=== PATIENT | male | born 1935 | race Caucasian/White ===

== ENCOUNTER 2023-12-15 23:32 | Inpatient (IN) ==
[2023-12-15] MEDS: 0.9 % SODIUM CHLORIDE 1,000 ML IV ONE (23:59)
[2023-12-16 00:53] LABS: Creatine Kinase 28 U/L (24-195)
[2023-12-16 00:55] LABS: ALT/SGPT 24 U/L (<40); AST/SGOT 19 U/L (<40); Albumin/Globulin Ratio 1.2 (1.0-2.3); Alkaline Phosphatase 148 U/L (39-117); Bilirubin,Total 0.4 mg/dL (0.1-1.0); Blood Urea Nitrogen 74 mg/dL (8-23); Calcium 10.8 mg/dL (8.6-10.4); Carbon Dioxide 21 mmol/L (22-30); Chloride 90 mmol/L (96-108); Globulin 2.5 gm/dL (2.2-3.7); Glomerular Filtration Rate 24; Glucose 123 mg/dL (70-105)
[2023-12-16 00:56] LABS: Basophils # (Auto) 0.01 K/mcL (0.00-0.30); Basophils % (Auto) 0.1 % (0.0-2.0); Eosinophils # (Auto) 0.02 K/mcL (0.00-0.70); Eosinophils % (Auto) 0.1 % (0.0-7.0); Hematocrit 24.9 % (40.1-51.0); Lymphocytes # (Auto) 0.37 K/mcL (1.50-4.80); Lymphocytes % (Auto) 2.8 % (15.5-49.0); Mean Cell Volume 81.9 fL (80.0-100.0); Mean Corpuscular HGB Conc 32.1 g/dL (31.0-36.0); Mean Platelet Volume 8.7 fL (8.8-12.5); Monocytes # (Auto) 1.09 K/mcL (0.10-0.90); Monocytes % (Auto) 8.1 % (1.0-12.0); Neutrophils % (Auto) 87.8 % (38.0-78.0); Platelet Count 162 K/mcL (140-440); RBC 3.04 M/mcL (4.63-6.08); Red Cell Distribution Width 15.3 % (11.5-14.5); WBC 13.5 K/mcL (4.5-11.0)
[2023-12-16] MEDS: FUROSEMIDE 40 MG/4 ML VIAL IV ONE (02:02)
[2023-12-16 03:21] LABS: Appearance,Urine CLOUDY (Clear); Bilirubin,Urine Negative (Negative); Calcium Oxalate Crystals,Urine MOD /hpf; Color,Urine YELLOW; Culture Indicated,Urine No; Glucose,Urine (UA) Negative (Negative); Ketones,Urine Negative (Negative); Leukocyte Esterase,Urine Negative /uL (Negative); Mucus,Urine FEW /hpf; Nitrate,Urine Negative (Negative); Protein,Urine Negative (Negative); Specific Gravity,Urine 1.011 (1.000-1.035); Urine Blood Negative (Negative); Urine Hyaline Cast 24 /lph (0-2); Urine RBC 1 /hpf (0-3); Urine Squamous Epithelial Cell 0 /hpf (0-4); Urine Transitional Epi Cells < 1 /hpf (0-2); Urine WBC 4 /hpf (0-4); Urobilinogen,Urine Negative
[2023-12-16] MEDS ORDERED: ONDANSETRON 4 MG/2 ML VIAL IV PRN ×3 (03:38→11:03)
[2023-12-16] MEDS: morphine 4 MG/ML VIAL IV PRN (05:16)
[2023-12-16] MEDS ORDERED: HYDROcodone/APAP 5/325MG TABLET PO PRN (11:03)
[2023-12-16] MEDS ORDERED: POTASSIUM CHLORIDE 40 MEQ in DEXTROSE 5% IN WATER 500 ML IV PRN (11:03)
[2023-12-16] MEDS ORDERED: POLYETHYLENE GLYCOL 3350 17 GM PACKET PO PRN (11:03)
[2023-12-16] MEDS ORDERED: METOPROLOL TARTRATE 5 MG/5 ML VIAL IV PRN (11:03)
[2023-12-16] MEDS ORDERED: IPRATROPIUM/ALBUTEROL 3 ML AMPUL.NEB NEB PRN (11:03)
[2023-12-16] MEDS ORDERED: ACETAMINOPHEN 325 MG TABLET PO PRN (11:03)
[2023-12-16] MEDS ORDERED: POTASSIUM CHLORIDE 20 MEQ TABLET PO PRN ×2 (11:03)
[2023-12-16] MEDS ORDERED: SENNOSIDES 1 TABLET PO PRN (11:03)
[2023-12-16] MEDS ORDERED: MAGNESIUM SULFATE 2 GM/50 ML BAG IV PRN (11:03)
[2023-12-16] MEDS ORDERED: morphine 4 MG/ML VIAL IV PRN (11:03)
[2023-12-16 12:05] LABS: INR 2.1 (0.9-1.1); Prothrombin Time 24.5 sec (11.9-14.5)
[2023-12-16] MEDS: CARVEDILOL 3.125 MG TABLET PO SCH (17:38)
[2023-12-16] MEDS: 0.9 % SODIUM CHLORIDE 10 ML SYRINGE IV SCH (19:29)
[2023-12-16] MEDS: TAMSULOSIN 0.4 MG CAPSULE PO SCH (23:04)
[2023-12-16] MEDS: DOCUSATE SODIUM 100 MG CAPSULE PO SCH (23:04)
[2023-12-17] MEDS ORDERED: LEVOTHYROXINE 50 MCG TABLET PO SCH (07:30)
[2023-12-17] MEDS ORDERED: BUMETANIDE 1 MG TABLET PO SCH (09:00)
[2023-12-17] MEDS ORDERED: AMIODARONE HCL 200 MG TABLET PO SCH (09:00)
== END 2023-12-16 23:31 | disposition expired | DRG 641 ==
LOC: ED 23:32 → MEDSUR 12-16 04:37
PROVIDERS: ADMIT Internal Medicine; ATTEND Internal Medicine